=== PATIENT | male | born 1965 | race Caucasian/White ===

== ENCOUNTER → 2017-05-23 | Outpatient (CLI) | payer BC ==
[2017-05-23 18:12] LABS: Specimen Source URINE
[2017-05-24 12:15] LABS: Source Urine
== END ==
LOC: LAB 14:45
PROVIDERS: Physician Assistant
DX: N39.0 Urinary tract infection, site not specified (principal)
CPT/HCPCS: 87077; 87086; 87186; 87491; 87591

== ENCOUNTER 2018-11-07 09:17 | Day surgery (SDC) | payer BC ==
[~2018-11-07] VITALS: Ht 167.6 cm; Wt 81.9 kg
[2018-11-07] MEDS ORDERED: Zocor20 MG PO (10:10)
[2018-11-07] MEDS ORDERED: Zantac150 MG PO (10:10)
[2018-11-07] MEDS ORDERED: METF500 PO (10:10)
[2018-11-07] MEDS ORDERED: VALA500 PO (10:11)
--- NOTE | 2018-11-07 11:15 | NUR ---
11/07/18 1115 AulanderMarshal PATIENT DETERMINED TO BE ASA APPROPRIATE FOR PROPOFOL SEDATION PRIOR TO START OF PROCEDURE BY 3-LEAD EKG REVIEWED WITH PHYSICIAN PRIOR TO START OF PROCEDURE.Patient to ENDO 1History, Chart, Medications and Allergies reviewed before start of procedure.MONITOR INTACT WITH CONTINUOUS PULSE OXIMETRY AND INTERMITTENT BP.O2 VIA N/C INTACT THROUGHOUT SEDATION/PROCEDURE.
[2018-11-07] MEDS ORDERED: LISI20 PO (11:57)
--- NOTE | 2018-11-07 12:21 | NUR ---
Patient up to Ambulate independently. Gait steady. Discharge instructions reviewed with patient. Patient verbalizes understanding. Copy given to patient to take home. Patient States Post-Procedure ride home has been arranged. Discharged via wheelchair to private car for ride home.
== END 2018-11-07 22:47 | disposition home or self-care (01) ==
LOC: ORSCMMR 09:17 → ORD 10:30 → ORSCMMR 22:47
PROVIDERS: Internal Medicine Gastroenterology
PROC: 0DJD8ZZ Inspection of Lower Intestinal Tract, Via Natural or Artificial Opening Endoscopic (ICD-10-PCS; principal; 2018-11-07 10:30)
DX: Z12.11 Encounter for screening for malignant neoplasm of colon (principal); E11.9 Type 2 diabetes mellitus without complications; E78.00 Pure hypercholesterolemia, unspecified; K21.9 Gastro-esophageal reflux disease without esophagitis; Z79.84 Long term (current) use of oral hypoglycemic drugs; Z79.899 Other long term (current) drug therapy
CPT/HCPCS: 82947; J2250; J2704; J7120

== ENCOUNTER 2019-11-25 20:30 | Emergency (ER) | payer BC ==
[~2019-11-25] VITALS: Ht 167.6 cm; Wt 81.7 kg
[~2019-11-25 20:30] MED LIST: LISI20 PO; METF500 PO; VALA500 PO; Zantac150 MG PO; Zocor20 MG PO
[2019-11-25] MEDS ORDERED: EZETIMIBE 10 MG (20:48)
[2019-11-25] MEDS ORDERED: ALFUZOSIN HCL10 MG (20:48)
[2019-11-25] MEDS ORDERED: PEPCID40 MG PO (20:48)
[2019-11-25] MEDS ORDERED: ATORVASTATIN 40 MG T (20:49)
[2019-11-25 21:27] LABS: BASOPHILS ABSOLUTE AUTO 0.01 K/mm3 (0.00-0.23); BASOPHILS PERCENT AUTO 0 % (0-2); EOSINOPHILS ABSOLUTE AUTO 0.16 K/mm3 (0.00-0.68); EOSINOPHILS PERCENT AUTO 2 % (0-6); Hematocrit 44.3 % (37.0-53.0); Hemoglobin 15.7 g/dL (13.5-17.5); IMMATURE GRAN ABSOLUTE AUTO 0.02 K/mm3 (0.00-0.10); IMMATURE GRAN PERCENT AUTO 0 % (0-1); LYMPHOCYTES ABSOLUTE AUTO 2.63 K/mm3 (0.84-5.20); LYMPHOCYTES PERCENT AUTO 29 % (21-46); MONOCYTES ABSOLUTE AUTO 0.96 K/mm3 (0.16-1.47); MONOCYTES PERCENT AUTO 11 % (4-13); Mean Corpuscular HGB 30.8 pg (26.0-34.0); Mean Corpuscular HGB Conc 35.4 g/dL (31.5-36.5); Mean Corpuscular Volume 87 fL (80-100); Mean Platelet Volume 9.6 fL (9.1-12.4); NEUTROPHILS ABSOLUTE AUTO 5.16 K/mm3 (1.96-9.15); NEUTROPHILS PERCENT AUTO 58 % (41-73); Platelet Count 206 K/mm3 (150-400); RDW Coefficient Variation 11.4 % (11.7-14.2); RDW Standard Deviation 36.4 fL (35.1-46.3); Red Blood Cell Count 5.09 M/mm3 (4.30-5.90); White Blood Cell Count 8.94 K/mm3 (4.00-11.30)
[2019-11-25 21:50] LABS: Alanine Aminotransfer (ALT/SGP 111 U/L (12-78); Albumin, Blood 4.3 g/dL (3.4-5.0); Albumin/Globulin Ratio 1.3 (0.8-1.8); Alk Phos 94 U/L (50-136); Anion Gap 7 mmol/L (6-16); Aspartate Aminotrans (AST/SGOT 39 U/L (12-37); Bilirubin, Total 0.7 mg/dL (0.1-1.0); Blood Urea Nitrogen 12 mg/dL (8-24); Bun/Creatinine Ratio 16.1 (12.0-20.0); CO2, Blood 25 mmol/L (21-32); Chloride, Blood 107 mmol/L (98-108); Creatinine, Blood 0.75 mg/dL (0.60-1.20); Globulin, Blood 3.4 g/dL (2.2-4.0); Glomerular Filtration Rate >60 (60-); Glucose, Blood 100 mg/dL (70-99); Potassium, Blood 3.6 mmol/L (3.5-5.5); Sodium, Blood 139 mmol/L (136-145); Total Protein, Blood 7.7 g/dL (6.4-8.2); Troponin I <0.015 ng/mL (0.000-0.040)
== END 2019-11-25 22:13 | disposition home or self-care (01) ==
LOC: ER 20:30
PROVIDERS: Physician Assistant
DX: R55 Syncope and collapse (principal); F41.9 Anxiety disorder, unspecified; K21.9 Gastro-esophageal reflux disease without esophagitis; E78.00 Pure hypercholesterolemia, unspecified; E11.9 Type 2 diabetes mellitus without complications; Z88.0 Allergy status to penicillin; Z79.899 Other long term (current) drug therapy; Z87.891 Personal history of nicotine dependence
CPT/HCPCS: 36415; 71045; 80053; 82947; 83880; 84484; 85025; 93005; 93010; 99283-25

== ENCOUNTER 2021-12-09 10:55 | Day surgery (SDC) | payer BC, OTHER ==
[~2021-12-09] VITALS: Ht 167.6 cm; Wt 78.6 kg
[~2021-12-09 10:55] MED LIST changes: +ALBU90OI INH; +ALFUZOSIN HCL10 MG; +ATORVASTATIN 40 MG T; +EZETIMIBE 10 MG; +METPRE4DP PO; +PEPCID40 MG PO
[2021-12-09] MEDS ORDERED: Aspir 8181 MG PO (11:38)
[2021-12-09] MEDS ORDERED: OMEP20ER PO (11:38)
[2021-12-09] MEDS ORDERED: TAMS.4ER PO (11:38)
[2021-12-09] MEDS ORDERED: METPHE10 PO (11:39)
[2021-12-09] MEDS ORDERED: Atarax10 MG PO (11:39)
[2021-12-09] MEDS ORDERED: ESZO2 PO (11:39)
[2021-12-09] MEDS ORDERED: Norco 10-325 T1 EACH PO (11:40)
--- NOTE | 2021-12-09 14:07 | NUR ---
12/09/21 1407 Jose Bal 1 MG EPI ADDED TO EACH OF THE FIRST 3 BAGS OF LR FOR IRRIGATION AT [facility] PER ORDER.
--- NOTE | 2021-12-09 15:30 | NUR ---
12/09/21 1530 BHAVANIDANA PAIN IS REPORTED 5/10. PT STATES THAT HE IS ON PAIN MANAGEMENT. HE STATES THAT HE HAS SOMETHING STRONGER AT HOME AND PLANS TO JUST HOME AND TAKE THAT MED VERSES WHAT WE CAN GIVE HIM.
== END 2021-12-09 15:49 | disposition home or self-care (01) ==
LOC: ORSCSDS 10:55
PROVIDERS: Orthopaedic Surgery
PROC: 0LS34ZZ Reposition Right Upper Arm Tendon, Percutaneous Endoscopic Approach (ICD-10-PCS; principal; 2021-12-09 12:40)
PROC: 0RNJ4ZZ Release Right Shoulder Joint, Percutaneous Endoscopic Approach (ICD-10-PCS; principal; 2021-12-09 12:40)
DX: M75.111 Incomplete rotator cuff tear or rupture of right shoulder, not specified as traumatic (principal); M75.21 Bicipital tendinitis, right shoulder; M75.41 Impingement syndrome of right shoulder; I10 Essential (primary) hypertension; K21.9 Gastro-esophageal reflux disease without esophagitis; N40.0 Benign prostatic hyperplasia without lower urinary tract symptoms; Z79.899 Other long term (current) drug therapy
CPT/HCPCS: 82947; C1713; J0171; J1100; J2250; J2370; J2405; J2704; J3010; J7120

== ENCOUNTER 2024-09-26 05:58 | Day surgery (SDC) | payer BC, OTHER ==
[2024-09-26] VITALS (11 sets, daily range): BP systolic 105–148; BP diastolic 65–86
[~2024-09-26] VITALS: Ht 167.6 cm; Wt 87.7 kg
[~2024-09-26 05:58] MED LIST changes: +ARTHRITIS PAIN150 GM TOP; +ASPI81CH PO; +ATOR40TA PO; -ATORVASTATIN 40 MG T; +Aspir 8181 MG PO; +Atarax10 MG PO; +ESZO2 PO; +INDO50 PO; -LISI20 PO; +METHYLPHENIDATE20 M5 PO; +METPHE10 PO; +Norco 10-325 T1 EACH PO; +ONDA4 PO; +Prilosec Otc20 MG PO; +TAMS.4ER PO; +TRAM50 PO; +ZESTRIL40 M1 PO
[2024-09-26] MEDS ORDERED: CeFAZolin Sodium 2,000 MG in NS 100 ML IV SCH (06:20)
[2024-09-26] MEDS ORDERED: Tranexamic Acid 100 ML IV SCH (06:20)
[2024-09-26] MEDS ORDERED: EPINEPhrine HCl 1 MG / ML 30ML Vial ONE (07:07)
[2024-09-26] MEDS ORDERED: Bupivacaine 0.5% W/EPI 1:200000 SDV 30 ML Vial ONE (07:08)
[2024-09-26] MEDS ORDERED: FentaNYL Citrate 50 MCG/ML 2 ML Injection ONE ×3 (07:15→10:15)
[2024-09-26] MEDS ORDERED: Midazolam HCl 1MG / ML 2ML Vial ONE (07:15)
[2024-09-26] MEDS ORDERED: Bupivacaine HCl 0.25% 30 ML Injection ONE (07:15)
[2024-09-26] MEDS ORDERED: Dexamethasone Sod Phos 10 MG/ML 1ML VIAL ONE (07:15)
--- NOTE | 2024-09-26 07:19 | NUR ---
History, Chart, Medications and Allergies reviewed before start of procedure. Patient up to Ambulate independently. Gait steady. Pre-Op teaching done. Pt verbalizes understanding. Patient confirms NPO status and agrees with scheduled surgery. Patient reports completing Chlorhexadine shower X2 prior to admission to hospital. Surgical site prepped with 2% Chlorhexidine cloth wipe. Lungs clear T/O to Auscultation. Patient States Post-Procedure ride home has been arranged. Patient provided sling sent with patient to OR.
[2024-09-26] MEDS ORDERED: Rocuronium Bromide 10 MG/ML 5ML Injection IV ONE (07:30)
--- NOTE | 2024-09-26 07:44 | NUR ---
INTERSCALENE NERVE BLOCK PERFORMED IN [facility] AT BEDSIDE 721: TIME OUT CONDUCTED 24: PROCEDURE START 726: PROCEDURE END PT TOLERATD PROCEDURE WITHOUT INCIDENT, PULSE OX ON THROUGHOUT. VSS, ROOM AIR.
[2024-09-26] MEDS ORDERED: Phenylephrine HCl 100 MCG/ML-NS 10MLSYR (1MG/10ML) ONE (07:49)
[2024-09-26] MEDS ORDERED: Albuterol 2.5 MG/3 ML VIAL INH PRN (07:55)
[2024-09-26] MEDS ORDERED: Ondansetron HCl 2 MG / ML 2ML Vial IV PRN (07:55)
[2024-09-26] MEDS ORDERED: FentaNYL Citrate 50 MCG/ML 2 ML Injection IV PRN ×2 (08:00)
[2024-09-26] MEDS ORDERED: HYDROmorphone HCl/Pf 1MG SYR IV PRN ×2 (08:00)
[2024-09-26] MEDS ORDERED: ePHEDrine Sulfate 50 MG/ML 1ML Injection ONE (08:10)
[2024-09-26] MEDS ORDERED: Ondansetron HCl 2 MG / ML 2ML Vial ONE (09:44)
[2024-09-26] MEDS ORDERED: Sugammadex Sodium 200 MG/2ML SDV (100 MG/ML) ONE (09:45)
[2024-09-26] MEDS ORDERED: HYDROmorphone HCl/Pf 1MG SYR ONE (09:47)
--- NOTE | 2024-09-26 10:58 | NUR ---
PT HERE ON RA 92%, 02 STARTED AT 1L/MIN VIA NC. PT REPOSITIONED IN BED TO HIGH FOWLERS. ENC. C+DB. PT GIVEN APPLE JUICE AND PUDDING.
--- NOTE | 2024-09-26 11:47 | NUR ---
Patient up to Ambulate independently. Gait steady. UP TO BR ABLE TO VOID W/O DIFFICULTY. CAP REFILL <3 SEC. ON RIGHT HAND. FINGERS WARM AND PINK. PT ABLE TO MOVE THEM, BUT SHOULDER "FEELS " R/T BLOCK. DRESSING CDI. PT GIVEN INSTRCTIONS, QUESTIONS ANSWERED. Discharged via wheelchair to private car for ride home.
== END 2024-09-26 11:50 | disposition home or self-care (01) ==
LOC: ORSCMMR 05:58 → ORD 07:30 → ORSCMMR 07:30
PROVIDERS: Orthopaedic Surgery Sports Medicine
PROC: 0RNJ4ZZ Release Right Shoulder Joint, Percutaneous Endoscopic Approach (ICD-10-PCS; principal; 2024-09-26 07:30)
PROC: 0LS34ZZ Reposition Right Upper Arm Tendon, Percutaneous Endoscopic Approach (ICD-10-PCS; principal; 2024-09-26 07:30)
PROC: 0LQ14ZZ Repair Right Shoulder Tendon, Percutaneous Endoscopic Approach (ICD-10-PCS; principal; 2024-09-26 07:30)
DX: M75.111 Incomplete rotator cuff tear or rupture of right shoulder, not specified as traumatic (principal); M75.41 Impingement syndrome of right shoulder; S46.211A Strain of muscle, fascia and tendon of other parts of biceps, right arm, initial encounter; I10 Essential (primary) hypertension; E78.5 Hyperlipidemia, unspecified; K21.9 Gastro-esophageal reflux disease without esophagitis; F41.9 Anxiety disorder, unspecified; Z79.899 Other long term (current) drug therapy; Z79.82 Long term (current) use of aspirin
CPT/HCPCS: A9270; C1713; J0165; J0690; J1100; J1171; J2250; J2371; J2405; J2704; J3010; J7120; Q4125

== ENCOUNTER → 2025-02-24 | Outpatient (CLI) | payer OTHER ==
[2025-02-24 17:50] LABS: Source, Urine Voided
[2025-02-24 20:09] LABS: Glucose Qualitative, Urine 1+ (Neg); Ketones, Urine Neg (Neg); Leukocyte Esterase, Urine 3+ (Neg); Protein, Urine 1+ (Neg); Specific Gravity, Urine 1.010 (1.003-1.022); Urobilinogen, Urine 2+ (Normal)
[2025-02-24 20:17] LABS: Bilirubin, Urine 1+ (Neg); Color, Urine Amber (P-Yellow)
[2025-02-24 20:18] LABS: Red Blood Cells, Urine Not Seen /hpf (0-2)
== END ==
LOC: LAB 14:00 → LAB SHORT 14:00
PROVIDERS: Registered Nurse
DX: R35.0 Frequency of micturition (principal); R39.15 Urgency of urination
CPT/HCPCS: 81001; 87077; 87086; 87186